=== PATIENT | male | born 1960 ===

== ENCOUNTER → 2025-08-18 07:42 | Outpatient (CLI) | payer MEDICARE, SELFPAY | LOC: PHYS 07:45 | PROVIDERS: Family Provider Nurse Practitioner Gerontology; PCP Family Medicine; Referring Provider Orthopaedic Surgery; Visit Provider Orthopaedic Surgery | DX: R20.2 Paresthesia of skin (principal); M79.671 Pain in right foot; M79.672 Pain in left foot | CPT/HCPCS: 95886; 95913 ==